=== PATIENT | female | born 1960 | race Two or more races ===

== ENCOUNTER 2019-12-15 09:45 | Inpatient (IN) | payer OTHER ==
[~2019-12-15] VITALS: Ht 167.6 cm; Wt 81.6 kg
[2019-12-15] MEDS ORDERED: SYNTHROID88 MCG PO (14:12)
[2019-12-24] MEDS ORDERED: DICLOFENAC SODI75 MG PO (09:15)
[2019-12-24] MEDS ORDERED: PANTOPRAZOLE SO40 MG PO (09:16)
[2019-12-24] MEDS ORDERED: INTESTINEX680 M1 PO (09:16)
== END 2019-12-24 11:35 | disposition home or self-care (01) | DRG 331 ==
LOC: SURH 12-20 07:00 → O/R 12-20 07:31 → SURH 12-20 09:45
PROVIDERS: ADMIT Colon & Rectal Surgery
PROC: 0DBN4ZZ Excision of Sigmoid Colon, Percutaneous Endoscopic Approach (ICD-10-PCS; 2019-12-20)
PROC: 0DBP4ZZ Excision of Rectum, Percutaneous Endoscopic Approach (ICD-10-PCS; principal; 2019-12-20 07:00)
DX: K57.30 Diverticulosis of large intestine without perforation or abscess without bleeding (principal); I11.9 Hypertensive heart disease without heart failure; F32.89 Other specified depressive episodes; J45.20 Mild intermittent asthma, uncomplicated

== ENCOUNTER 2020-12-14 06:21 | Day surgery (SDC) | payer OTHER ==
[~2020-12-14 06:21] MED LIST: DICLOFENAC SODI75 MG PO; INTESTINEX680 M1 PO; PANTOPRAZOLE SO40 MG PO; SYNTHROID88 MCG PO
== END 2020-12-14 12:15 | disposition home or self-care (01) ==
LOC: AMB-ENDOS 06:21
PROVIDERS: ATTEND Colon & Rectal Surgery
DX: K62.89 Other specified diseases of anus and rectum (principal); K64.2 Third degree hemorrhoids